=== PATIENT | female | born 1960 | race Caucasian/White ===

== ENCOUNTER → 2017-10-09 | Outpatient (CLI) | payer OTHER ==
--- NOTE | 2017-10-11 15:11 | MAM ---
EXAM DESCRIPTION: Screening Mammogram,Bilateral: Digital mammography. CLINICAL HISTORY: 57 yearsFemaleANNUAL SCREENING. No complaints. No family history of breast cancer. Postmenopausal. Currently on HRT. COMPARISON: 2-D digital screening bilateral study with implant displacement views on 03/07/2014. No prior reports available. TECHNIQUE: Bilateral CC and MLO projection full-field images, and bilateral Mason Implant Displacement images. 2-D Digital screening mammographic technique. CAD was utilized. FINDINGS: The breast parenchymal density pattern is: Heterogeneously dense breast tissue, which may obscure small masses. No skin thickening or nipple retraction bilaterally. Bilateral bilateral solitary microcalcifications. Retromuscular saline implants. Implant capsule is intact where seen. No focal, stellate mass or density no focal asymmetry, and no suspicious microcalcifications bilaterally. Bilaterally stable since the prior study, taking into account differences in mammographic technique. IMPRESSION: BI-RADS CATEGORY: 2 - BENIGN FINDINGS. FOLLOW UP: Routine digital bilateral screening, one year interval from September 2017. Written communication explaining the IMPRESSION and follow-up, will be mailed to the patient and referring health care provider. According to the [employer], yearly mammograms are recommended starting at age 40 and continuing as long as a woman is in good health. Any breast change noted on a breast self-exam should be reported promptly to the patient's healthcare provider. Breast MRI is recommended for women with an approximately 20-25% or greater lifetime risk of breast cancer, including women with a strong family history of breast or ovarian cancer and women who have been treated for Hodgkin's disease. A negative mammographic report should not delay tissue diagnosis in patients with significant clinical history or physical findings. Extremely dense breast tissue limits the sensitivity of digital mammography. Written communication explaining the results and follow-up will be mailed to the patient and referring care provider. Electronically signed by: Dakota Lopez MD 10/11/2017 3:10 PM [employer]
== END ==
LOC: MAMMO 08:29
PROVIDERS: ATTEND Surgery Plastic and Reconstructive Surgery
DX: Z12.31 Encounter for screening mammogram for malignant neoplasm of breast (principal)

== ENCOUNTER → 2018-11-26 | Outpatient (CLI) | payer OTHER ==
--- NOTE | 2018-11-27 15:31 | MAM ---
EXAM DESCRIPTION: 3D Screening BILATERAL : Digital Mammography. CLINICAL HISTORY: 58 years Female SCREENING . No complaints. No personal or family history of breast cancer. Childbirth. Postmenopausal for years. Currently on HRT. Bilateral breast augmentation. Lifetime risk of developing breast cancer (Tyrer-Cuzick model)(%): 6.2. COMPARISON: Bilateral screening two-dimensional mammography with Mason implant displacement 10/09/2017. TECHNIQUE: Bilateral CC and MLO projection full-field images, with Mason Implant Displacement digital tomosynthesis mammographic technique. Bilateral 2-D digital full-field images, MLO and CC projections, non-displaced. CAD Bilateral digital 2-D full-field MLO images. CAD not available for tomosynthesis or 2-D images. FINDINGS: The breast parenchymal density pattern is: Heterogeneously dense breast tissue, which may obscure small masses. No skin thickening or nipple retraction. Bilateral solitary microcalcifications. Small right axillary lymph nodes. Bilateral retromuscular saline implants. Capsules appear intact where seen. No new focal, stellate mass or density, focal asymmetry , and no suspicious microcalcifications or laterally. Stable mammograms compared to prior study. Taking into account, differences in mammographic technique. IMPRESSION: Benign exam. BIRAD CATEGORY: 2 BENIGN FINDINGS. RECOMMENDATIONS: FOLLOW UP: Routine digital bilateral mammographic screening, one year interval from October 2018. Written communication explaining the IMPRESSION and follow-up, will be mailed to the patient and referring health care provider. According to the [employer], yearly mammograms are recommended starting at age 40 and continuing as long as a woman is in good health. Any breast change noted on a breast self-exam should be reported promptly to the patient's healthcare provider. Breast MRI is recommended for women with an approximately 20-25% or greater lifetime risk of breast cancer, including women with a strong family history of breast or ovarian cancer and women who have been treated for Hodgkin's disease. A negative mammographic report should not delay tissue diagnosis in patients with significant clinical history or physical findings. Extremely dense breast tissue limits the sensitivity of digital mammography. Electronically signed by: Dakota Lopez MD 11/27/2018 3:30 PM FINANCIAL REPORTING ADVISOR
== END ==
LOC: MAMMO 08:06
PROVIDERS: ATTEND Nurse Practitioner Family
DX: Z12.31 Encounter for screening mammogram for malignant neoplasm of breast (principal)

== ENCOUNTER → 2019-08-05 | Outpatient (CLI) | payer OTHER ==
--- NOTE | 2019-08-05 11:04 | US ---
EXAM DESCRIPTION: Venous,Lower Extremity LT CLINICAL HISTORY: M79.605 COMPARISON: None Available. TECHNIQUE: Left lower extremity venous duplex FINDINGS: Doppler evaluation of the left lower extremity deep veins was performed. Normal color flow is seen in the common femoral, superficial femoral, profunda femoral and greater saphenous veins. Normal flow is seen in the popliteal vein and veins below the knee in the calf. Normal venous compressibility and flow augmentation. Prominent lymph nodes in the left groin. One node has a short axis dimensional measurement of 1.9 cm which is large. Another node has a short axis dimension measurement of 1.3 cm. The largest node has a short axis dimension measurement of 2.2 cm. These could be inflammatory or malignant nodes. Correlate with biopsy findings if indicated. IMPRESSION: Negative for evidence of deep venous thrombosis on left lower extremity venous Doppler sonogram. Left inguinal adenopathy. See above. Electronically signed by: Lion Lawrence MD 08/05/2019 11:02 AM CDT
== END ==
LOC: US 09:39
PROVIDERS: ATTEND Family Medicine
DX: R59.0 Localized enlarged lymph nodes (principal); M79.605 Pain in left leg

== ENCOUNTER 2019-08-23 07:05 | Day surgery (SDC) | payer SELFPAY ==
[2019-08-23] MEDS ORDERED: ALPRAZolam 0.25 MG TAB PO ONE ×2 (09:15→10:35)
[2019-08-23] MEDS ORDERED: ALPRAZolam 0.25 MG TAB ONE (09:15)
[2019-08-23] MEDS ORDERED: SODIUM BICARBONATE VIAL 50 MEQ/50 ML VIAL ONE (11:18)
[2019-08-23] MEDS ORDERED: LIDOCAINE 1% 50 ML VIAL INJ ONE (11:18)
[2019-08-23] MEDS ORDERED: MIDAZOLAM INJ 5 MG/5 ML VIAL ONE (12:09)
[2019-08-23] MEDS ORDERED: fentaNYL CITRATE INJ 50 MCG/ML AMP ONE ×2 (12:17→12:22)
--- NOTE | 2019-08-23 13:24 | OP ---
DATE OF PROCEDURE: 08/23/19 PREOPERATIVE DIAGNOSIS: 1. Left inguinal lymphadenopathy. POSTOPERATIVE DIAGNOSIS: 1. Left inguinal lymphadenopathy, pending pathology. PROCEDURE: 1. Excision of left inguinal lymph node mass. SURGEON: Geovanni Ambrosio MD. SALES ACCOUNT LEADER: None. ANESTHESIA: Local infiltration with 1% lidocaine with bicarb and IV sedation. INDICATION: The patient is a 59-year-old female who has developed a tender mass in her left groin. She is quite active, but there was no injury. There is a history of a skin lesion in her distal anterior left leg which has resolved either with shaving or spontaneously. She has received 2 rounds of antibiotics. She was brought to the [facility] today for excision of the left inguinal lymph nodes for both pathology and flow cytometry. The risks, benefits and alternatives to the procedure were discussed and accepted. FINDINGS: There was large, matted lymphadenopathy. Pathology is pending. PROCEDURE: After the patient was placed in the supine position, the left proximal thigh was prepped and draped in the usual sterile manner with the left leg froglegged. A surgical time-out was taken. An oblique incision was then fashioned over the mass, first with the marking pen and then with infiltration of anesthesia. Dissection was carried down through the skin and subcutaneous tissue to the mass using electrocautery, clamps and ligatures of 3-0 Vicryl. When this was done, a self-retaining retractor was placed and then with tedious blunt dissection and electrocautery, the lesion was dissected free and lymph node was transected superiorly. The specimen was then divided sharply and sent for both flow cytometry and regular pathology. The wound was then irrigated with local anesthesia. Hemostasis was obtained with electrocautery. When hemostasis was noted to be adequate, it was closed in 2 layers. The subcutaneous tissues were reapproximated with interrupted 3-0 Vicryl subcutaneous sutures and 4-0 Ethilon vertical mattress sutures for the skin. A sterile pressure dressing was applied. The patient tolerated the procedure well after receiving doses of both oral Xanax preoperatively and then was given doses of Versed a total of 5 mg and fentanyl a total of 200 mcg. Estimated blood loss was 50 to 75 mL. All sponge, needle and instrument counts were correct. #[id number] [facility]
[2019-08-23] MEDS ORDERED: ACETAMINOPHEN W/COD #3 TAB 1 EA TAB ONE (13:30)
[2019-08-23 16:32] VITALS: O2SAT 99
[2019-08-23 16:34] VITALS: BP 108/62; TEMP 99.1
== END 2019-08-23 14:40 | disposition home or self-care (01) ==
LOC: AMB 07:05
PROVIDERS: ATTEND Surgery
DX: C77.4 Secondary and unspecified malignant neoplasm of inguinal and lower limb lymph nodes (principal); Z88.8 Allergy status to other drugs, medicaments and biological substances; Z79.899 Other long term (current) drug therapy
CPT/HCPCS: 38500; J2250; J3010

== ENCOUNTER → 2019-08-28 | Outpatient (CLI) | payer OTHER ==
--- NOTE | 2019-08-28 14:39 | CT ---
EXAM DESCRIPTION: Head w/wo Contrast: Computed Tomography. CLINICAL HISTORY: MELANOMA COMPARISON: CT scans of the chest with and without IV contrast and CT scans of the abdomen and pelvis with and without IV contrast on the same visit. TECHNIQUE: Spiral -axial scans through the head and brain at 5.0 x 20 mm intervals, without and with nonionic IV contrast. Coronal and sagittal 2.0 mm reconstructions. No adverse reactions. Total Exam DLP: 1719.94 mGy-cm. This exam was performed according to our departmental CT dose-optimization program which includes automated exposure control, adjustment of the mA and/or kV according to patient size and/or use of iterative reconstruction technique; to reduce radiation dose to as low as reasonably achievable (ALARA). FINDINGS: No hemorrhage. No mass-effect and no midline shift. Normal contrast enhancement. Normal vernon-white matter differentiation. No abnormal radiodense material in the brain parenchymaVascular calcifications minimal in the anterior circulation; physiologic calcifications in the pineal gland and choroid plexus. No effacement or displacement of the ventricles, CSF spaces, or subdural spaces. Minimal prominence of cortical sulci in the frontal parietal and occipital lobes. Normal contrast enhancement. No extra axial fluid collection or hemorrhage. No gross abnormalities of the bony calvarium. No unusual enhancement in the [place]. Minimal mucosal thickening inferior left mastoid air cells. Paranasal sinuses and right mastoid air cells are unremarkable. IMPRESSION: 1. No hemorrhage. No mass effect or midline shift.. No abnormal calcification, no focal mass enhancement. 2. Probable chronic inflammation inferior left mastoid air cells. CRITICAL COMMUNICATION: The critical value was discussed directly in person by Dr. Lopez, with Dr. Geovanni Ambrosio at approximately 1345 hours, on August 28, 2019. Electronically signed by: Dakota Lopez MD 08/28/2019 2:37 PM CDT
--- NOTE | 2019-08-28 15:07 | CT ---
EXAM DESCRIPTION: Chest w/wo Contrast : Computed Tomography. CLINICAL HISTORY: 59 years Female MELANOMA COMPARISON: CT scan of the head without and with IV contrast and CT scan abdomen and pelvis without and with IV contrast on this visit. TECHNIQUE: Spiral-axial scans at 5 x 5 mm intervals through the lungs and thorax without IV contrast. 2.5 x 5 mm lung algorithm axial reconstructions. 2.0 Mm reconstructions, after IV contrast. No adverse reactions. Total Exam DLP: 521.25 mGy-cm. This exam was performed according to our departmental dose-optimization program which includes automated exposure control, adjustment of the mA and/or kV according to patient size and/or use of iterative reconstruction technique; to reduce radiation dose to as low as reasonably achievable (ALARA). Nodule measurements under 10 mm are given as mean value of 3 axes diameters. FINDINGS: Lungs and large airways: 6.7 mm calcified nodule subpleural left upper lobe laterally near the apex small pleural thickening and extension. 3.8 mm solid subpleural parenchymal nodule versus focal pleural thickening posteriorly upper superior segment right lower lobe, on axial images -54. No abnormal solid nodules and no masses. No focal infiltrates bilaterally.. Pleural spaces: Bilateral apical pleural thickening. No effusion bilaterally or pneumothorax. Mediastinum and [place]: No enlarged lymph nodes or dominant soft tissue masses. No abnormal enhancement. Great vessels and Heart: Atherosclerotic calcification in the proximal right innominate artery. Questionable calcification in the posterior aspect of the LAD coronary artery ascending aorta is slightly ectatic. Soft tissues of neck base, axillae, and chest wall: Bilateral submuscular breast implants. Small axillary lymph nodes. Small thyroid gland. Lateral contrast flow around the right shoulder. Upper abdomen: Please see images and report on CT scan of abdomen and pelvis on the same visit. Osseous structures: No lytic or blastic lesions. IMPRESSION: 1. Calcified granuloma left upper lobe at the apex laterally. 3.8 mm solid subpleural parenchymal nodule versus focal pleural thickening abutting the posterior pleura of the superior segment of the right lower lobe. [employer] Best Practice recommendations for single solid lung nodule. Please see below*: *2017 Fleischner Society Recommendations for Single Solid Lung Nodule Follow-Up based on size (average of long- and short-axis diameters) <6 mm Low-Risk Patient: No routine follow-up <6 mm High-Risk Patient: Optional CT at 12 months CRITICAL COMMUNICATION: The critical value was discussed directly in person by Dr. Lopez, with Dr. Geovanni Ambrosio at approximately 1345 hours, on August 28, 2019. Electronically signed by: Dakota Lopez MD 08/28/2019 3:06 PM CDT
--- NOTE | 2019-08-28 15:45 | CT ---
EXAM DESCRIPTION: Abdomen/Pelvis w/wo Contrast: Computed Tomography. CLINICAL HISTORY: MELANOMA. Masses in the left inguinal region. Recent biopsy positive. COMPARISON: CT scan of the head without with IV contrast. CT scan of the chest without and with IV contrast. TECHNIQUE: Spiral-axial scans at 5 x 5 mm intervals through the abdomen and pelvis before and after 75 mL Optiray 320 nonionic IV contrast. No oral contrast. Coronal and sagittal 3.0 mm reconstructions. No delayed scans. no adverse reactions. Total Exam DLP 808.75 mGy - cm. This exam was performed according to our departmental CT dose-optimization program which includes automated exposure control, adjustment of the mA and/or kV according to patient size and/or use of iterative reconstruction technique; to reduce radiation dose to as low as reasonably achievable (ALARA). FINDINGS: Lung bases and pleura: Please see images and report from chest CT scan without and with IV contrast on this visit. Liver, Stomach, Spleen, Adrenal Glands: 1.1 cm fluid density subcapsular mass in the left hepatic lobe. 3 additional lesions have a similar appearance but smaller in diameter. Normal size of the liver with smooth capsule. Stomach and other solid organs are negative. Pancreas, Gallbladder, Ducts: Normal size echogenicity and enhancement of the pancreas. Minimal wall thickening in the gallbladder which may be contracted. Mid and distal duct normal caliber. No peripancreatic mass. Kidneys and Ureters: 3 mm stone in the lower collecting system bilaterally right kidney. Small cyst left kidney. Bilateral kidneys otherwise unremarkable. Mesentery: No fatty stranding, no free air, and no free fluid. Aorta: Small periaortic and pericaval nodes less than 5 mm in diameter. No atherosclerotic changes. w Small Bowel: Diffuse fluid with minimal gas in the small bowel. No distended segments, significant air-fluid levels, or transition point. Terminal Ileum/Cecum: Standard position. Normal caliber. Normal caliber of the appendix with gas. No inflammatory changes. . Colon: Minimal distention of the proximal colon with fecal matter. Mid and distal colon normal caliber. No complications. Pelvic Organs: Normal position of the uterus with heterogeneous enhancement. Bilateral ovaries with follicles. No free fluid in the cul-de-sac. Enlarged irregular peripherally enhancing mass anterior to the left external iliac artery, measures 2.0 x 2.1 x 1.8 cm consistent with abnormal lymph node. Slightly smaller lymph node posteriorly and medially measures 1.3 x 1.1 x 1.0 cm. Third lymph node more superiorly and laterally abutting the wall of the cavity measures 1.8 x 1.4 x 1.1 cm. Minimal fatty stranding around these nodes. Spine and Bony Pelvis: Spondylosis L5-S1 and minimal spondylosis on the right at L3-L4. Subchondral changes bilateral hip joints. No lytic or blastic lesions. Abdominal Wall/Back Soft Tissues: Fluid collection with air-fluid levels in the left groin at the site of previous biopsy measures 4.7 x 3.9 x 2.1 cm. Surrounding fatty stranding. Multiple other partially enhancing masses in the left inguinal region with long axis dimensions of 2.4 cm, 2.1 cm, 1.7 cm, 1.4 cm, and 2.2 cm. No enlarged right inguinal nodes. Remainder of the abdominal wall is unremarkable. IMPRESSION: 1. Abnormal enhancing and enlarged lymph nodes in the left external iliac chain probably contain metastatic disease. Multiple abnormal enlarged lymph nodes in the left inguinal region. Biopsy-proven metastatic melanoma. Probable seroma in the biopsy site. 2. No pelvic adenopathy. No periaortic adenopathy. No stranding or inflammatory changes in the mesentery except as noted. 3. Small left hepatic cysts. No solid enhancing lesions. 4. 3 mm nonobstructing stone in the right kidney. Small simple cyst left kidney. CRITICAL COMMUNICATION: The critical findings discussed directly in person by Dr. Lopez, with Dr. Geovanni Ambrosio at approximately 1345 hours, on August 28, 2019. Electronically signed by: Dakota Lopez MD 08/28/2019 3:43 PM CDT
== END ==
LOC: CT 12:35
PROVIDERS: ATTEND Surgery
DX: C43.72 Malignant melanoma of left lower limb, including hip (principal); R59.1 Generalized enlarged lymph nodes; K76.89 Other specified diseases of liver; N20.0 Calculus of kidney; N28.1 Cyst of kidney, acquired; J84.10 Pulmonary fibrosis, unspecified; R91.8 Other nonspecific abnormal finding of lung field; H74.8X2 Other specified disorders of left middle ear and mastoid

== ENCOUNTER → 2019-11-26 | Outpatient (CLI) | payer BC | LOC: GMAH 10:42 | PROVIDERS: ATTEND Nurse Practitioner Family | DX: C43.72 Malignant melanoma of left lower limb, including hip (principal) ==

== ENCOUNTER → 2020-06-22 | Outpatient (CLI) | payer BC | END | disposition home or self-care (01) | LOC: GMAHI 15:22 | PROVIDERS: ATTEND Nurse Practitioner Family | DX: C79.9 Secondary malignant neoplasm of unspecified site (principal) ==